=== PATIENT | male | born 1960 | race Hispanic/Latino ===

== ENCOUNTER → 2024-12-13 | Day surgery (SDC) | payer MEDICARE ==
[~2024-12-13] MED LIST: ATORVASTATIN CA20 MG PO; BASAGLAR K100 UNIT/1; BUMETANIDE1 MG PO; CALCITRIOL0.5 MCG PO; CARVEDILOL25 MG; DIOVAN160 MG PO; FEROSUL325 MG PO; FOLIC ACID0.4 MG PO; HUMALOG MI100 UNIT/2 SQ; ISOSORBIDE MONO30 MG PO; LIDOCAINE HCL 2% LOCAL INJ 5 ML SDV VIAL INJ ONE; MAGNESIUM; METOLAZONE5 MG PO; NIFEDIPINE ER30 M1 PO; PROPOFOL IV EMULSION 10 MG/ML 20 ML VIAL ONE; VITAMIN B2100 MG
[2024-12-13 10:16] LABS: BASOPHILS % 1.2 % (0.0-1.0); EOSINOPHILS % 3.6 % (0.0-6.0); LYMPHOCYTES % 33.1 % (18.0-39.1); MONOCYTES % 9.7 % (4.4-11.3); NEUTROPHILS % 52.1 % (38.7-80.0); RED CELL DISTRIBUTION WIDTH 15.9 % (11.7-14.4)
[2024-12-13] MEDS: LACTATED RINGER'S 1,000 ML ONE (10:16)
[2024-12-13] MEDS: SODIUM CHLORIDE 0.9% 500ML 500 ML ONE (10:17)
[2024-12-13 10:55] LABS: EST GLOMERULAR FILTRATION RATE 5.0 ML/MIN (>=60)
[2024-12-13 10:58] LABS: INR 1.05
[2024-12-13 12:10] VITALS: BP 127/76; PULSE 62; RESP 16; O2SAT 98
== END | disposition home or self-care (01) ==
LOC: OR 08:50
PROVIDERS: ATTEND Internal Medicine Gastroenterology
DX: Z09 Encounter for follow-up examination after completed treatment for conditions other than malignant neoplasm (principal); D12.3 Benign neoplasm of transverse colon; K64.8 Other hemorrhoids; E11.9 Type 2 diabetes mellitus without complications; I10 Essential (primary) hypertension; Z78.9 Other specified health status; Z01.810 Encounter for preprocedural cardiovascular examination; Z79.4 Long term (current) use of insulin; Z79.899 Other long term (current) drug therapy; Z68.26 Body mass index [BMI] 26.0-26.9, adult; Z71.3 Dietary counseling and surveillance
CPT/HCPCS: 36415; 45385; 80048; 82948; 85025; 85610; 85730; 88305; 93005; J2003; J2704; J7040; J7121; 45378